=== PATIENT | male | born 1970 | race Caucasian/White ===

== ENCOUNTER 2019-02-03 06:10 | Day surgery (SDC) | payer OTHER, SELFPAY ==
[2019-02-03] VITALS (7 sets, daily range): BP systolic 82–148; BP diastolic 44–99; PULSE 71–88; RESP 16–18; TEMP 36.3–36.6; O2SAT 94–100
[2019-02-03] MEDS: Lactated Ringers 1,000 ML 80 ML IV (06:45)
--- NOTE | 2019-02-03 07:31 | W.PM.DSUDISC ---
Discharge Plan Disposition Patient Disposition: HOME Condition: Good Discharge Details Reason For Visit: Ventral hernia repair Attending Provider: Maya Reyes Primary Care Provider: Constantin Garcia Home Meds and New Rx's Prescriptions: No Action No Known Home Meds RF: 0 Discharge Instructions Additional Instructions: The top bandage can be removed tomorrow. The steri strips will usually stick for about a week. When the edges start to curl up, they can be removed. It is okay to shower tomorrow, the water can run over the steri strips Do not swim or soak in a tub for two weeks Call for any concerns including fever, increased pain, vomiting, incision redness or drainage. Do not lift more than 15 pounds for four weeks. Walking and stairs are fine. Do not drive if on narcotic pain meds or if limited by pain. May use Tylenol alternating with ibuprofen for pain control. Ice is also an option. The maximum dose for Tylenol is 4000 mg/day. May use ibuprofen 800 mg every 8 hours as needed. If concerned about constipation, you may use a stool softener or milk of magnesia. Referrals: Maya Reyes MD [ [facility] STAFF PHYSICIAN] - (Return in 10-14 days) Activity:: Do not lift more than 15 pounds for 4 weeks Remove Dressings/Wound Care:: 24 hours Shower/Bathe:: 24 hours Diet:: As Tolerated Discharge Orders Discharge Orders: Discharge Order (Routine); Ordered 02/03/19 Ordered By: Maya Reyes DS: Diagnosis Discharge Diagnosis (1) Ventral hernia: Status: Acute (2) History of ventral hernia repair:
[2019-02-03] MEDS: ceFAZolin 2 GM/50 ML BAG IVPB (07:35)
[2019-02-03] MEDS: Bupivacaine 0.25% Pres-Free 30 ML VIAL (07:45)
[2019-02-03] MEDS: Bupivacaine 0.25% Pres-Free 10 ML VIAL (07:45)
[2019-02-03] MEDS: Bupivacaine 0.5% Pres-Free 30 ML VIAL (08:20)
[2019-02-03] MEDS: Lidocaine 2% Multi-Dose 50 ML VIAL (08:20)
--- NOTE | 2019-02-04 07:35 | ROE_ITS ---
REPORT OF OPERATIVE PROCEDURE DATE OF PROCEDURE February 03, 2019 PREOPERATIVE DIAGNOSIS Ventral hernia. POSTOPERATIVE DIAGNOSIS Ventral hernia. PROCEDURE Ventral hernia repair with mesh. SURGEON Maya Reyes M.D. [employer] Radha Clemens PA-C ANESTHESIA Rectus sheath block, local and general. INDICATIONS This is a 48-year-old man with an uncomfortable bulge above his umbilicus. He was found to have a mos tly reducible ventral hernia on preoperative examination. PROCEDURE DESCRIPTION The patient was placed supine on the operating table, and had a rectus sheath block placed. His abdom en was then prepped and draped sterilely. The hernia was located a few centimeters above the umbilic us. A vertical incision was made here after injecting local anesthetic. The subcutaneous tissue was divided with cautery down to the hernia sac. This was dissected free of the surrounding tissue, down to the level of the fascial defect. The fascial defect was about 2.5 cm. It contained a small amount of omentum at this point. The underside of the fascia was cleared off. A medium Ventralex mesh provid ed nice coverage of the defect. This was sutured in position in four quadrants with a #2-0 and #0-Pro yousuf stitch. The redundant fascia and small portion of the hernia sac were closed over the top of the mesh with a running #0-Vicryl stitch. Of note, I had palpated the umbilical region from the undersid e and did not feel any fascial defect of the umbilicus. The subcutaneous tissue was reapproximated wi th interrupted #0-Vicryl sutures, and the skin closed with a running #4-0 Monocryl subcuticular stitc h. He tolerated the procedure well and was stable to recovery. CC: Constantin Garcia M.D.
== END 2019-02-03 10:49 | disposition home or self-care (01) ==
PROVIDERS: PCP Family Medicine; Visit Provider Surgery
PROC: (CPT 49560; principal; 2019-02-03 07:30)
DX: K43.9 Ventral hernia without obstruction or gangrene (principal)
CPT/HCPCS: 49560; 49568; 76942; C1781; J0690; J1100; J1885; J2250; J2405

== ENCOUNTER 2020-08-02 02:22 | Outpatient (CLI) | payer OTHER, SELFPAY ==
[2020-08-02 07:30] LABS: HCT 46.6 % (40.0-50.0); HGB 15.4 g/dL (13.5-17.5); MCH 31.8 pg (27.0-33.0); MCV 96.1 fL (80-95); MPV 9.8 fL (8.0-11.0); Platelet Count 179 10^3/uL (130-400); RBC 4.85 10^6/uL (4.36-5.78); RDW 12.4 % (11.8-14.1); RDW-SD 43.8 fL; WBC 5.96 10^3/uL (4.4-10.8)
== END 2020-08-02 02:23 | disposition home or self-care (01) ==
LOC: LBO 02:22
PROVIDERS: PCP Family Medicine; Visit Provider Family Medicine
DX: D64.9 Anemia, unspecified (principal)
CPT/HCPCS: 36415; 85027

== ENCOUNTER 2020-08-19 02:59 | Outpatient (CLI) | payer OTHER, SELFPAY ==
[2020-08-19 08:52] LABS: CREATININE 1.2 mg/dL (0.70-1.30); Potassium 4.1 mmol/L (3.5-5.1)
[2020-08-24 18:33] LABS: PSA, Screening 0.3 ng/mL (0.0-3.5)
== END 2020-08-19 03:00 | disposition home or self-care (01) ==
LOC: LBO 02:59
PROVIDERS: PCP Family Medicine; Visit Provider Family Medicine
DX: I10 Essential (primary) hypertension (principal)
CPT/HCPCS: 36415; 84153; 82565; 84132